=== PATIENT | female | born 1970 | race Caucasian/White ===

== ENCOUNTER 2019-09-25 07:27 | Outpatient (CLI) | payer BC, SELFPAY ==
--- NOTE | 2019-09-25 07:35 | MM_ITS ---
WS: [id number] SCREENING DIGITAL MAMMOGRAM WITH CAD HISTORY: SCREENING COMPARISON: 04/14/2018, 03/27/2018 and 03/05/2017 Bilateral CC and MLO views submitted. Computer aided detection analyzed. Breast composition: The breasts are heterogeneously dense, which may obscure small masses. Asymmetry with triangle shaped measures 7 mm in the medial RIGHT breast seen on the CC projection only. Otherwi se no interval change. RIGHT breast: Spot compression view CC .True ML. Ultrasound to follow if abnormality persists. MM/[place] [id number] IMPRESSION: BI-RADS: 0-Incomplete: Need additional imaging evaluation FOLLOW UP: Need Additional Imaging
== END 2019-09-25 07:28 | disposition home or self-care (01) ==
LOC: RADSHAW 07:32
PROVIDERS: Family Provider Family Medicine; PCP Family Medicine; Visit Provider Family Medicine
DX: Z12.31 Encounter for screening mammogram for malignant neoplasm of breast (principal)
CPT/HCPCS: 77067

== ENCOUNTER 2019-10-19 09:28 | Outpatient (CLI) | payer BC, SELFPAY ==
--- NOTE | 2019-10-19 10:30 | MM_ITS ---
WS: [id number] ADDITIONAL VIEWS RIGHT BREAST RIGHT breast ultrasound, limited HISTORY: Abnormal mammo COMPARISON: 04/14/2018 and 09/25/2019 and 03/05/2017 Compression views right CC projection. True ML also submitted. Asymmetry nearly completely resolves in the medial RIGHT breast. Fibroglandular pattern is now more consistent with prior imaging studies dating back to 2017. Ultraso und will be performed to be sure sure there is no underlying abnormality. RIGHT breast ultrasound, limited. Ultrasound is directed to the medial RIGHT breast. There is no mass, solid or cystic abnormality or s hadowing. MM/[place] [id number] IMPRESSION: BI-RADS: 2-Benign FOLLOW-UP: 1 Year Follow-up Asymmetry in the medial breast did not persist. Likely due to superimposed fibr oglandular densities. Return to normal annual screening.
--- NOTE | 2019-10-19 11:00 | US_ITS ---
WS: [id number] ADDITIONAL VIEWS RIGHT BREAST RIGHT breast ultrasound, limited HISTORY: Abnormal mammo COMPARISON: 04/14/2018 and 09/25/2019 and 03/05/2017 Compression views right CC projection. True ML also submitted. Asymmetry nearly completely resolves in the medial RIGHT breast. Fibroglandular pattern is now more consistent with prior imaging studies dating back to 2017. Ultraso und will be performed to be sure sure there is no underlying abnormality. RIGHT breast ultrasound, limited. Ultrasound is directed to the medial RIGHT breast. There is no mass, solid or cystic abnormality or s hadowing. US/US breast RT limited* [id number] IMPRESSION: BI-RADS: 2-Benign FOLLOW-UP: 1 Year Follow-up Asymmetry in the medial breast did not persist. Likely due to superimposed fibr oglandular densities. Return to normal annual screening.
== END 2019-10-19 09:29 | disposition home or self-care (01) ==
LOC: RADSHAW 09:29
PROVIDERS: Family Provider Family Medicine; PCP Family Medicine; Visit Provider Obstetrics & Gynecology
DX: R92.8 Other abnormal and inconclusive findings on diagnostic imaging of breast (principal)
CPT/HCPCS: 76642; 77065

== ENCOUNTER → 2020-12-02 09:12 | Outpatient (BNVA) | payer BC, SELFPAY | PROVIDERS: Family Provider Family Medicine; PCP Family Medicine; Visit Provider Obstetrics & Gynecology | DX: N95.0 Postmenopausal bleeding (principal); N85.4 Malposition of uterus | CPT/HCPCS: 76830; 88305 ==

== ENCOUNTER 2022-01-12 07:13 | Outpatient (CLI) | payer BC, SELFPAY ==
--- NOTE | 2022-01-12 07:17 | MM_ITS ---
WS: [id number] BILATERAL SCREENING 3D TOMOSYNTHESIS DIGITAL MAMMOGRAM WITH CAD HISTORY: SCREENING COMPARISON: 09/25/2019, 10/19/2019, 04/14/2018 and 03/05/2017 Bilateral CC and MLO views submitted. Computer aided detection analyzed. Breast composition: The breasts are heterogeneously dense, which may obscure small masses. No suspici ous masses, microcalcifications or architectural distortion. Asymmetries and nodules are stable throu ghout each breast. MM/[place] [id number] IMPRESSION: BI-RADS: 2-Benign FOLLOW UP: 1 Year Follow-up
== END 2022-01-12 07:14 | disposition home or self-care (01) ==
LOC: RADSHAW 07:14
PROVIDERS: Family Provider Family Medicine; PCP Family Medicine; Visit Provider Family Medicine
DX: Z12.31 Encounter for screening mammogram for malignant neoplasm of breast (principal)
CPT/HCPCS: 77063; 77067

== ENCOUNTER 2024-12-16 09:00 | Outpatient (CLI) | payer OTHER, SELFPAY ==
--- NOTE | 2024-12-16 09:00 | MM_ITS ---
WS: [id number] BILATERAL SCREENING DIGITAL TOMOSYNTHESIS MAMMOGRAM WITH CAD HISTORY: SCREENING COMPARISON: 01/12/2022, 10/19/2019, 09/25/2019 Bilateral CC and MLO views with tomosynthesis and synthetic mammography submitted. Computer aided detection analyzed. Breast composition: The breasts are heterogeneously dense, which may obscure small masses. No suspicious masses, microcalcifications or architectural distortion. Stable asymmetries within each breast. MM/MM scr tomosynthesis [id number] IMPRESSION: BI-RADS: 2 - Benign FOLLOW UP: 1 Year Follow-up
== END 2024-12-16 09:01 | disposition home or self-care (01) ==
LOC: MOBLMAM 09:03
PROVIDERS: PCP Registered Nurse; Visit Provider Registered Nurse
DX: Z12.31 Encounter for screening mammogram for malignant neoplasm of breast (principal); R92.333 Mammographic heterogeneous density, bilateral breasts; N64.89 Other specified disorders of breast
CPT/HCPCS: 77063; 77067